=== PATIENT | male | born 1945 | race Caucasian/White ===

== ENCOUNTER 2017-12-04 13:24 | Emergency (ER) | payer MEDICARE ==
[~2017-12-04] VITALS: Ht 198.1 cm; Wt 85.0 kg
[~2017-12-04 13:24] MED LIST: CARB25TA9 PO; CITA40TA4 PO; CLON1TAB PO; PERI8.6T PO; PROP10TA6 PO; ROTI4DIS T-DERMAL; [UNRECOGNIZED DRUG - OTHER] PO
[2017-12-04 13:30] VITALS: BP 171/81; PULSE 70; RESP 20; TEMP 98.3; O2SAT 96
[2017-12-04] MEDS ORDERED: SODIUM CHLOR 0.9% 1000 ML INJ 1,000 ML IV ONE (13:33)
[2017-12-04 13:38] VITALS: O2SAT 96
[2017-12-04] MEDS ORDERED: SODIUM CHLORIDE 0.9% FLUSH 10 ML FLUSH IVF PRN (13:45)
[2017-12-04 14:06] LABS: AUTOMATED NEUTROPHIL # 3.7 TH/MM3 (1.8-7.7); BASOPHIL % 0.6 % (0.0-2.0); EOSINOPHIL % 0.9 % (0.0-4.0); HEMATOCRIT 43.9 % (39.0-51.0); HEMOGLOBIN 15.3 GM/DL (13.0-17.0); LYMPH % 21.2 % (9.0-44.0); LYMPHOCYTE # 1.1 TH/MM3 (1.0-4.8); MEAN CELL VOLUME 87.2 FL (80.0-100.0); MEAN CORPUSCULAR HEMOGLOBIN 30.4 PG (27.0-34.0); MEAN CORPUSCULAR HGB CONC 34.8 % (32.0-36.0); MEAN PLATELET VOLUME 8.1 FL (7.0-11.0); MONO % 8.9 % (0.0-8.0); MONOCYTE # 0.5 TH/MM3 (0-0.9); NEUT % 68.4 % (16.0-70.0); PLATELET COUNT 211 TH/MM3 (150-450); RED BLOOD COUNT 5.03 MIL/MM3 (4.50-5.90); RED CELL DISTRIBUTION WIDTH 13.5 % (11.6-17.2); WHITE BLOOD COUNT 5.4 TH/MM3 (4.0-11.0)
--- NOTE | 2017-12-04 14:09 | RADRPT ---
EXAM DATE/TIME: 12/04/2017 13:53 [facility] COMPARISON: No previous studies available for comparison. INDICATIONS : Abnormal heart rate. MEDICAL HISTORY : None. SURGICAL HISTORY : None. ENCOUNTER: Initial ACUITY: 1 day PAIN SCORE: 0/10 LOCATION: Bilateral chest FINDINGS: A single view of the chest demonstrates the lungs to be symmetrically aerated without evidence of mas s, infiltrate or effusion. The cardiomediastinal contours are unremarkable. Osseous structures are intact. CONCLUSION: No acute disease. Luiz Quarles MD on December 04, 2017 at 14:07 Board Certified Radiologist. This report was verified electronically.
[2017-12-04 14:18] LABS: INTERNATIONAL NORMALIZED RATIO 1.1 RATIO; PROTHROMBIN TIME - PATIENT 10.7 SEC (9.8-11.6)
[2017-12-04 14:30] LABS: ALBUMIN 3.7 GM/DL (3.4-5.0); ALT (GPT) 9 U/L (12-78); AST (GOT) 18 U/L (15-37); BICARBONATE 24.6 MEQ/L (21.0-32.0); BLOOD UREA NITROGEN 27 MG/DL (7-18); CALCIUM 8.8 MG/DL (8.5-10.1); CHLORIDE 111 MEQ/L (98-107); CREATININE 0.88 MG/DL (0.60-1.30); GLOMERULAR FILTRATION RATE 85 ML/MIN (>89); GLUCOSE,RANDOM 92 MG/DL (74-106); SODIUM (NA) 142 MEQ/L (136-145)
[2017-12-04 14:34] LABS: ALKALINE PHOSPHATASE 85 U/L (45-117); TOTAL BILIRUBIN ADULT 0.7 MG/DL (0.2-1.0); TOTAL PROTEIN 7.5 GM/DL (6.4-8.2); TROPONIN I LESS THAN 0.02 NG/ML (0.02-0.05)
--- NOTE | 2017-12-04 14:45 | RADRPT ---
EXAM DATE/TIME: 12/04/2017 14:38 [facility] COMPARISON: No previous studies available for comparison. INDICATIONS : Generalized weakness. RADIATION DOSE: 56.35 CTDIvol (mGy) MEDICAL HISTORY : Parkinson's. SURGICAL HISTORY : None. ENCOUNTER: Initial ACUITY: 1 day PAIN SCALE: 0/10 LOCATION: cranial TECHNIQUE: Multiple contiguous axial images were obtained of the head. Using automated exposure control and adj ustment of the mA and/or kV according to patient size, radiation dose was kept as low as reasonably a chievable to obtain optimal diagnostic quality images. DICOM format image data is available electro nically for review and comparison. FINDINGS: CEREBRUM: The ventricles are normal for age. No evidence of midline shift, mass lesion, hemorrhage or acute in farction. No extra-axial fluid collections are seen. POSTERIOR FOSSA: The cerebellum and brainstem are intact. The 4th ventricle is midline. The cerebellopontine angle i s unremarkable. EXTRACRANIAL: The visualized portion of the orbits is intact. SKULL: The calvaria is intact. No evidence of skull fracture. CONCLUSION: Normal examination for a patient of this age. Markus Garcia MD on December 04, 2017 at 14:43 Board Certified Radiologist. This report was verified electronically.
[2017-12-04 16:06] VITALS: BP 164/80; PULSE 73; RESP 16; TEMP 97.9; O2SAT 98
[2017-12-04 16:10] LABS: BILIRUBIN, URINE NEG (NEG); BLOOD, URINE NEG (NEG); GLUCOSE,URINE 70 mg/dL (NEG); KETONE, URINE TRACE mg/dL (NEG); NITRITE,URINE NEG (NEG); PH, URINE 6.5 (5.0-8.5); URINE COLOR YELLOW (YELLW/STRAW); URINE LEUKOCYTE ESTERASE NEG (NEG)
--- NOTE | 2017-12-04 17:06 | EKG ---
Date Performed: 12/04/2017 Time Performed: 13:40:53 PTAGE: 72 years EKG: EXTENSIVE BASELINE ARTEFACT, POSSIBLE Sinus rhythm RIGHT BUNDLE BRANCH BLOCK ABNORMAL ECG NO PREVIOUS TRACING DOCTOR: Saurabh Dang Interpretating Date/Time 12/04/2017 17:05:59
--- NOTE | 2017-12-04 17:34 | PD ---
HPI Chief Complaint: General Weakness Time Seen by Provider: 13:32 Travel History International Travel<30 days: No Contact w/Intl Traveler<30days: No Traveled to known affect area: No History of Present Illness HPI Patient is a 72 year old male BIBEMS due to some weakness. Patient has history of Parkinson's disease and he has not been taking his medications appropriately. He is from [facility], and some of his medications are [place]. Per daughter, his has been sick over the past few months and was in a rehab , she was just recently sent home. She says that over that time it seems that his health is declined. She says that her brother who was staying with her father for the past few days was concerned because he was unable to walk today. The brother also noticed that her father was not taking his Parkinson medications and started to give them to him. He has no specific complaints. He is not complaining of any pain. He has not had chest pain or shortness of breath. He denies any headaches or fevers. He does say he has been eating and drinking, but today says he is only had some water and a small piece of toast. Severity is mild to moderate. PFSH Past Medical History Medical History: Denies Significant Hx Parkinson's Disease: Yes Past Surgical History Surgical History: No Previous Surgery Social History Alcohol Use: No Tobacco Use: No Substance Use: No Allergies-Medications (Allergen,Severity, Reaction): Coded Allergies: No Known Allergies (Unverified Adverse Reaction, Unknown, 08/23/17) Reported Meds & Prescriptions Reported Meds & Active Scripts Active Reported [Pargitan] 5 Mg PO TID Neupro Patch 24 HR (Rotigotine Patch 24 HR) 4 Mg/24 Hr Patch 4 Mg T-DERMAL DAILY Propranolol (Propranolol HCl) 10 Mg Tab 10 Mg PO Q8HR PRN Citalopram (Citalopram Hydrobromide) 40 Mg Tab 40 Mg PO DAILY Deann-Colace (Sennosides-Docusate Sodium) 8.6-50 Mg Tab 1 Tab PO DAILY Clonazepam 1 Mg Tab 1 Mg PO HS Carbidopa-Levodopa 25-100 Mg Tab 1 Tab PO 5 TIMES A DAY Review of Systems Except as stated in HPI: all other systems reviewed are Neg General / Constitutional: No: Fever, Chills Eyes: No: Blurred Vision HENT: No: Headaches, Lightheadedness Cardiovascular: No: Chest Pain or Discomfort Respiratory: No: Shortness of Breath Gastrointestinal: No: Nausea, Vomiting Genitourinary: No: Dysuria Musculoskeletal: No: Myalgias Neurologic: Positive: Weakness Physical Exam Narrative GENERAL: Awake and alert, no acute distress. SKIN: Focused skin assessment warm/dry. No wounds or signs of infection. HEAD: Atraumatic. Normocephalic. EYES: Pupils equal and round. No scleral icterus. Extraocular movements intact. ENT: Dry mucous membranes. NECK: Trachea midline. No JVD. CARDIOVASCULAR: Regular rate and rhythm. No murmur appreciated. RESPIRATORY: No accessory muscle use. Clear to auscultation. Breath sounds equal bilaterally. GASTROINTESTINAL: Abdomen soft, non-tender, nondistended. MUSCULOSKELETAL: No obvious deformities. No clubbing. No cyanosis. No edema. NEUROLOGICAL: Awake and alert. No obvious cranial nerve deficits. Motor grossly within normal limits. Normal speech. Patient has a fine tremor. PSYCHIATRIC: Appropriate mood and affect; insight and judgment normal. Data Data Last Documented VS Vital Signs Date Time Temp Pulse Resp B/P (MAP) Pulse Ox O2 Delivery O2 Flow Rate FiO2 12/04/17 16:06 97.9 73 16 164/80 (108) 98 Room Air Orders Orders Complete Blood Count With Diff (12/04/17 13:33) Comprehensive Metabolic Panel (12/04/17 13:33) Troponin I (12/04/17 13:33) Act Partial Throm Time (Ptt) (12/04/17 13:33) Prothrombin Time / Inr (Pt) (12/04/17 13:33) Urinalysis - C+S If Indicated (12/04/17 13:33) Chest, Single Ap (12/04/17 13:33) Ct Brain W/O Iv Contrast(Rout) (12/04/17 13:33) Ecg Monitoring (12/04/17 13:33) Iv Access Insert/Monitor (12/04/17 13:33) Oximetry (12/04/17 13:33) Sodium Chloride 0.9% Flush (Ns Flush) (12/04/17 13:45) Sodium Chlor 0.9% 1000 Ml Inj (Ns 1000 M (12/04/17 13:33) Electrocardiogram (12/04/17 13:40) Labs Laboratory Tests Test 12/04/17 13:30 12/04/17 16:00 White Blood Count 5.4 TH/MM3 Red Blood Count 5.03 MIL/MM3 Hemoglobin 15.3 GM/DL Hematocrit 43.9 % Mean Corpuscular Volume 87.2 FL Mean Corpuscular Hemoglobin 30.4 PG Mean Corpuscular Hemoglobin Concent 34.8 % Red Cell Distribution Width 13.5 % Platelet Count 211 TH/MM3 Mean Platelet Volume 8.1 FL Neutrophils (%) (Auto) 68.4 % Lymphocytes (%) (Auto) 21.2 % Monocytes (%) (Auto) 8.9 % Eosinophils (%) (Auto) 0.9 % Basophils (%) (Auto) 0.6 % Neutrophils # (Auto) 3.7 TH/MM3 Lymphocytes # (Auto) 1.1 TH/MM3 Monocytes # (Auto) 0.5 TH/MM3 Eosinophils # (Auto) 0.0 TH/MM3 Basophils # (Auto) 0.0 TH/MM3 CBC Comment DIFF FINAL Differential Comment Prothrombin Time 10.7 SEC Prothromb Time International Ratio 1.1 RATIO Activated Partial Thromboplast Time 25.0 SEC Blood Urea Nitrogen 27 MG/DL Creatinine 0.88 MG/DL Random Glucose 92 MG/DL Total Protein 7.5 GM/DL Albumin 3.7 GM/DL Calcium Level 8.8 MG/DL Alkaline Phosphatase 85 U/L Aspartate Amino Transf (AST/SGOT) 18 U/L Alanine Aminotransferase (ALT/SGPT) 9 U/L Total Bilirubin 0.7 MG/DL Sodium Level 142 MEQ/L Potassium Level 3.8 MEQ/L Chloride Level 111 MEQ/L Carbon Dioxide Level 24.6 MEQ/L Anion Gap 6 MEQ/L Estimat Glomerular Filtration Rate 85 ML/MIN Troponin I LESS THAN 0.02 NG/ML Urine Color YELLOW Urine Turbidity CLEAR Urine pH 6.5 Urine Specific [place] 1.020 Urine Protein NEG mg/dL Urine Glucose (UA) 70 mg/dL Urine Ketones TRACE mg/dL Urine Occult Blood NEG Urine Nitrite NEG Urine Bilirubin NEG Urine Urobilinogen LESS THAN 2.0 MG/DL Urine Leukocyte Esterase NEG Urine RBC 1 /hpf Urine WBC LESS THAN 1 /hpf Microscopic Urinalysis Comment CULT NOT INDICATED MDM Medical Decision Making Medical Screen Exam Complete: Yes Emergency Medical Condition: Yes Medical Record Reviewed: Yes Interpretation(s) ECG shows large artifact due to parkinsonian tremor Differential Diagnosis Dehydration versus UTI versus pneumonia Narrative Course Patient is a 72-year-old male who comes in due to weakness. It sounds like his symptoms may be due to a disruption his Parkinson medications. IV established, labs sent. Labs show evidence of deep hydration with a BUN of 27 and a creatinine of 0.88. All other labs are within normal limits. Chest x-ray shows no evidence of pneumonia. CT head shows no acute abnormalities. Last [address] 12/04/17 1333 Signed Impressions: Service Date/Time: Monday, December 04, 2017 14:38 - CONCLUSION: Normal examination for a patient of this age. Markus Garcia MD Chest X-Ray 12/04/173 Signed Impressions: Service Date/Time: Monday, December 04, 2017 13:53 - CONCLUSION: No acute disease. Luiz Quarles MD Patient given IV fluids. I had a long discussion with his daughter who feels comfortable taking him home at this time. His has home health, and they have appointments with the physician Wednesday. She says she is going to try to arrange for home health for her father as well. They are also paying more attention to him taking his Parkinson medication appropriately. She is also scheduling an appointment with the neurologist. She says that she is comfortable with discharge at this time. She is advised to make these follow- up appointments for him and to return anytime for any worsening symptoms. Diagnosis Primary Impression: Dehydration Patient Instructions: Dehydration (ED), General Instructions Additional Instructions: Increase your water intake. Follow-up with your doctors. Return anytime for any worsening symptoms. Disposition: DISCHARGE HOME Condition: Stable Veronica White MD Dec 04, 2017 17:34
[2017-12-05] MEDS ORDERED: ENTA1TAB PO ×2 (07:27→08:32)
[2017-12-05] MEDS ORDERED: ROTI8DIS T-DERMAL (08:04)
[2017-12-05] MEDS ORDERED: TRIH5TAB2 PO (08:04)
[2017-12-13] MEDS ORDERED: AUGM875T3 PO (14:14)
[2017-12-13] MEDS ORDERED: CLON1 PO (16:46)
[2017-12-13] MEDS ORDERED: Carbidopa-Levodopa 25-100 Mg PO (16:46)
== END 2017-12-04 17:39 | disposition home or self-care (01) ==
LOC: NEPC 13:24
DX: E86.0 Dehydration (principal); G20 Parkinson's disease; Z79.899 Other long term (current) drug therapy
CPT/HCPCS: 70450; 71045; 80053; 81001; 84484; 85025; 85610; 85730; 93005; 99285; J7030